=== PATIENT | male | born 1980 ===

== ENCOUNTER → 2023-10-21 13:31 | Outpatient (CLI) | payer OTHER, SELFPAY ==
--- NOTE | ~2023-10-21 | XR_ITS ---
XR finger 5th LT min 2V DATE: 10/21/2023 13:46 INDICATION: Left fifth digit pain TECHNIQUE: 4 views COMPARISON: None FINDINGS: No fracture or dislocation, periosteal reaction or bone destruction, subcutaneous emphysema or abnormal calcification or foreign body. Joint spaces are well preserved. IMPRESSION: Negative Reviewed, dictated and finalized at location B. RAL PROFESSIONAL IMPRESSION: Negative
== END ==
PROVIDERS: PCP Nurse Practitioner Family; Visit Provider Nurse Practitioner Family
DX: M79.645 Pain in left finger(s) (principal)
CPT/HCPCS: 73140